=== PATIENT | male | born 1955 | race Caucasian/White ===

== ENCOUNTER 2017-10-30 04:15 | Emergency (ER) | payer BC ==
[2017-10-30 04:23] VITALS: RESP 16; TEMP 98.4
--- NOTE | 2017-10-30 04:25 | EDPHY ---
H & P Stated Complaint: Pt had an episode of syncope and has a lac to the right eyebrow HPI/ROS: HPI CHIEF COMPLAINT: Syncope, right eyebrow laceration HISTORY OF PRESENT ILLNESS: This patient very pleasant 62-year-old male, he is otherwise healthy does have significant past medical history for depression, he presents emergency room after a syncopal episode at home and a head laceration. Patient states that he got up to use the bathroom. He got out of bed went to the bathroom sat down and use the bathroom. He then went back to bed. He states he started hearing his Cat make noise so he got up and was going to get a glass of water he went back to the bathroom when he got into the bathroom felt very lightheaded. Denies chest pain or shortness of breath. Denies palpitations. He denies dizziness. He states he felt lightheaded knee was going to sit down but then had a syncopal episode he fell and hit the ground. He states he was out very briefly and immediately stood back up. Patient reports to me that his tetanus shot is up-to-date. Past Medical History: Depression Past Surgical History: No recent surgery. Social History: Lives locally, denies drugs alcohol tobacco. Family History: Noncontributory. ROS REVIEW OF SYSTEMS: A comprehensive 10 point review of systems is otherwise negative aside from elements mentioned in the history of present illness. Exam Constitutional appears well nontoxic triage nursing summary reviewed, vital signs reviewed, awake/alert. Eyes normal conjunctivae and sclera, EOMI, PERRLA. HENT head/neck: There is a right eyebrow laceration present approximately 3 cm in length, otherwise atraumatic exam moist mucus membranes, no epistaxis, neck supple/ no meningismus, no raccoon eyes. Respiratory clear to auscultation bilaterally, normal breath sounds, no respiratory distress, no wheezing. Cardiovascular rate normal, regular rhythm, no murmur, no edema, distal pulses normal. Gastrointestinal soft, non-tender, no rebound, no guarding, normal bowel sounds, no distension, no pulsatile mass. Genitourinary no CVA tenderness. Musculoskeletal no midline vertebral tenderness, full range of motion, no calf swelling, no tenderness of extremities, no meningismus, good pulses, neurovascularly intact. Skin pink, warm, & dry, no rash, skin atraumatic. Neurologic awake, alert and oriented x 3, AAOx3, moves all 4 extremities equally, motor intact, sensory intact, CN II-XII intact, normal cerebellar, normal vision, normal speech. Psychiatric normal mood/affect. Heme/Lymph/Immune no lymphadenopathy. Differential Diagnosis: Includes but is not limited to in a particular order: Vasovagal syncope, orthostatic syncope, dehydration, electrolyte disturbance, micturition syncope, cardiac arrhythmia, doubt acute coronary syndrome, intracranial bleed, skull fracture, head injury, facial laceration Medical Decision Making: Plan for this patient IV establishment full cardiac catheterization technician, check orthostatic vital signs, IV fluid bolus 1 L, EKG, troponin, CT head without contrast for trauma. And repair of his laceration. Re-evaluation: EKG interpretation by me on record in [facility] system. Impression time of EKG 4:49 a.m., sinus rhythm rate of 77 there is a right bundle-branch block present. I do not appreciate acute ischemic change on this EKG. CT head without contrast for trauma is negative for acute traumatic injury. Called to me by Dr. Arias [id number]: I have updated this patient about his EKG a right bundle-branch block. He is not aware that he has ever had a right bundle-branch block. He does not have any chest pain or shortness of breath. He denies any palpitations. He reports to me he had a treadmill stress test over 10 years ago as well as an EKG that he is unaware of any right bundle-branch block on it years ago. Laceration Repair Procedure: Verbal Consent was obtained, Under sterile conditions, The patient had lidocaine with epinephrine used approximately _ 5ccs to local anesthetize the right eyebrow 3 cm horizontally oriented Laceration. The wound was copiously irrigated with sterile fluid, the wound was explored for foreign bodies there were none visualized, the wound was explored with a sterile glove to the base. There are no deep structures involved, including no arterial injury. Four 6.O Prolene interrupted Sutures were placed in this patient's laceration. He had good close approximation of the wound edges. He Tolerated this well. 0621: Patient has been resting here comfortably with no complaints he denies any chest pain or shortness of breath. He ambulated well throughout the emergency without difficulty. Did not feel lightheaded or felt like he was going to have a syncopal episode. Blood work, CT scan is unremarkable. He received IV fluids. His EKG does show right bundle branch block. I do recommend he follows up with Cardiology on outpatient basis for his right bundle-branch block and syncope. Return precautions given. Source: Patient - Personal History Current Tetanus/Diphtheria Vaccine: Yes Current Tetanus Diphtheria and Acellular Pertussis (TDAP): Yes - Medical/Surgical History Hx Asthma: Yes Hx Chronic Respiratory Disease: No Hx Diabetes: No Hx Cardiac Disease: No Hx Renal Disease: No Hx Cirrhosis: No Hx Alcoholism: No Hx HIV/AIDS: No Hx Splenectomy or Spleen Trauma: No Other PMH: Mamie - Social History Smoking Status: Never smoked Constitutional: Initial Vital Signs Temperature (C) 36.9 C 10/30/17 04:18 Heart Rate 70 10/30/17 04:18 Respiratory Rate 16 10/30/17 04:18 Blood Pressure 128/84 H 10/30/17 04:18 O2 Sat (%) 95 10/30/17 04:18 O2 Delivery Mode Room Air Allergies/Adverse Reactions: No Known Allergies Allergy (Verified 10/30/17 04:22) Home Medications: Medication Instructions Recorded Finasteride 10/30/17 GABAPENTIN 10/30/17 LaMICtal 10/30/17 Seroquel 10/30/17 Tamsulosin HCl 10/30/17 Medical Decision Making - Data Points Laboratory Results: Laboratory Results 10/30/17 04:45 10/30/17 04:45 10/30/17 10/30/17 10/30/17 04:45 04:45 04:45 WBC 5.56 10^3/uL 10^3/uL (3.80-9.50) RBC 5.07 10^6/uL 10^6/uL (4.40-6.38) Hgb 17.4 g/dL g/dL (13.7-17.5) Hct 50.0 % % (40.0-51.0) MCV 98.6 fL fL (81.5-99.8) MCH 34.3 pg H pg (27.9-34.1) MCHC 34.8 g/dL g/dL (32.4-36.7) RDW 12.0 % % (11.5-15.2) Plt Count 199 10^3/uL 10^3/uL (150-400) MPV 9.4 fL fL (8.7-11.7) Neut % (Auto) 67.8 % % (39.3-74.2) Lymph % (Auto) 22.1 % % (15.0-45.0) [place] % (Auto) 6.7 % % (4.5-13.0) Eos % (Auto) 2.2 % % (0.6-7.6) Baso % (Auto) 0.7 % % (0.3-1.7) Nucleat RBC Rel Count 0.0 % % (0.0-0.2) Absolute Neuts (auto) 3.77 10^3/uL 10^3/uL (1.70-6.50) Absolute Lymphs (auto) 1.23 10^3/uL 10^3/uL (1.00-3.00) Absolute Monos (auto) 0.37 10^3/uL 10^3/uL (0.30-0.80) Absolute Eos (auto) 0.12 10^3/uL 10^3/uL (0.03-0.40) Absolute Basos (auto) 0.04 10^3/uL 10^3/uL (0.02-0.10) Absolute Nucleated RBC 0.00 10^3/uL 10^3/uL (0-0.01) Immature Gran % 0.5 % % (0.0-1.1) Immature Gran # 0.03 10^3/uL 10^3/uL (0.00-0.10) PT 12.9 SEC SEC (12.0-15.0) INR 0.95 (0.83-1.16) APTT 23.6 SEC SEC (23.0-38.0) Sodium 149 mEq/L H mEq/L (134-144) Potassium 4.3 mEq/L mEq/L (3.5-5.2) Chloride 107 mEq/L mEq/L (97-110) Carbon Dioxide 25 mEq/l mEq/l (22-31) Anion Gap 17 mEq/L H mEq/L (8-16) BUN 17 mg/dL mg/dL (7-23) Creatinine 1.1 mg/dL mg/dL (0.7-1.3) Estimated GFR > 60 Glucose 83 mg/dL mg/dL (70-100) Calcium 10.2 mg/dL mg/dL (8.5-10.4) Magnesium 2.1 mg/dL mg/dL (1.6-2.3) Total Bilirubin 0.8 mg/dL mg/dL (0.1-1.4) Conjugated Bilirubin 0.2 mg/dL mg/dL (0.0-0.5) Unconjugated Bilirubin 0.6 mg/dL mg/dL (0.0-1.1) AST 35 IU/L IU/L (17-59) ALT 56 IU/L IU/L (21-72) Alkaline Phosphatase 67 IU/L IU/L (38-126) Troponin I < 0.012 ng/mL ng/mL (0.000-0.034) Total Protein 7.8 g/dL g/dL (6.3-8.2) Albumin 4.9 g/dL g/dL (3.5-5.0) Medications Given: Discontinued Medications Sodium Chloride (Ns) 1,000 mls @ 0 mls/hr IV EDNOW ONE; Wide Open PRN Reason: Protocol Stop: 10/30/17 04:33 Last Admin: 10/30/17 04:58 Dose: 1,000 mls Departure - Departure Disposition: Home, Routine, Self-Care Clinical Impression: Facial laceration Qualifiers: Encounter type: initial encounter Qualified Code(s): S01.81XA - Laceration without foreign body of other part of head, initial encounter Syncope Qualifiers: Syncope type: unspecified Qualified Code(s): R55 - Syncope and collapse Condition: Good Instructions: Care For Your Stitches (ED), Laceration (ED), Syncope (ED) Additional Instructions: 1. Your sutures need to be removed in 7 days. 2. Please follow up with Cardiology 3. Return to the emergency room if there is any worsening symptoms questions or concerns. 4. Stay well-hydrated drink lots of fluids. Referrals: Taurus Bassett MD [Primary Care Provider] - As per Instructions Noam Dickinson MD [Medical Doctor] - As per Instructions
[2017-10-30] MEDS ORDERED: NS 1,000 ML IV ONE (04:32)
--- NOTE | 2017-10-30 04:51 | CPEKG ---
Heart Rate: 77 RR Interval: 779 P-R Interval: 176 QRSD Interval: 140 QT Interval: 412 QTC Interval: 467 P [place]: 46 QRS [place]: -57 T Wave [place]: 6 EKG Severity - ABNORMAL ECG - EKG Impression: SINUS RHYTHM EKG Impression: RIGHT BUNDLE BRANCH BLOCK Electronically Signed By: Gene Eubanks 30-Oct-2017 07:08:17
[2017-10-30 04:53] LABS: PLATELET COUNT 199 10^3/uL (150-400)
[2017-10-30 05:07] LABS: INR 0.95 (0.83-1.16); PROTIME(PATIENT) 12.9 SEC (12.0-15.0)
[2017-10-30 06:24] VITALS: BP 127/84; PULSE 67; O2SAT 94
== END 2017-10-30 06:36 | disposition home or self-care (01) ==
PROC: 0HQ1XZZ Repair Face Skin, External Approach (ICD-10-PCS; principal; 2017-10-30)
DX: S01.111A Laceration without foreign body of right eyelid and periocular area, initial encounter (principal); R55 Syncope and collapse; J45.909 Unspecified asthma, uncomplicated; E86.9 Volume depletion, unspecified; W01.198A Fall on same level from slipping, tripping and stumbling with subsequent striking against other object, initial encounter; Y92.009 Unspecified place in unspecified non-institutional (private) residence as the place of occurrence of the external cause